=== PATIENT | male | born 1975 | race Caucasian/White ===

== ENCOUNTER 2020-06-23 18:34 | Emergency (ER) | payer OTHER ==
[~2020-06-23] VITALS: Ht 172.7 cm; Wt 97.5 kg
--- NOTE | 2020-06-23 20:00 | NUR ---
Patient ambulated with stable gait. A/Ox4. Speech is clear, speaks in complete sentences. Patient came for throat discomfort, feels like it is swelling. Patient airway is nonobstructing, is not in respiratory distress, no sob no cough, no stridor. Patient in bed at lowest position, sr upx2, call light within reach. Safety precuations implemented per protocol.
[2020-06-23] MEDS ORDERED: predniSONE 20 MG TABLET PO ONE (20:30)
[2020-06-23] MEDS ORDERED: diphenhydrAMINE 50 MG CAPSULE PO ONE (20:30)
[2020-06-23] MEDS ORDERED: FAMOTIDINE 20 MG TABLET PO ONE (20:30)
[2020-06-23] MEDS ORDERED: predniSONE 50 MG TABLET ONE (20:35)
[2020-06-23] MEDS ORDERED: predniSONE 10 MG TABLET ONE (20:35)
[2020-06-23] MEDS ORDERED: diphenhydrAMINE 50 MG CAPSULE ONE (20:35)
[2020-06-23] MEDS ORDERED: FAMOTIDINE 20 MG TABLET ONE (20:36)
--- NOTE | 2020-06-23 21:17 | NUR ---
Patient discharged to home in stable condition. Written and verbal after care instructions given. Patient verbalizes understanding of instructions. Stressed follow up or return to ER for worsening s/s. Patient ambulated with stable gait.
[2020-06-23 21:27] VITALS: BP 128/58
== END 2020-06-23 21:27 | disposition home or self-care (01) ==
LOC: ER 18:36
DX: T78.40XA Allergy, unspecified, initial encounter (principal); X58.XXXA Exposure to other specified factors, initial encounter; R60.0 Localized edema; K21.9 Gastro-esophageal reflux disease without esophagitis
CPT/HCPCS: 99284; J7512 ×2; Q0163; A4663

== ENCOUNTER 2025-04-14 01:17 | Emergency (ER) | payer OTHER ==
[~2025-04-14] VITALS: Ht 172.7 cm; Wt 99.8 kg
[2025-04-14] MEDS ORDERED: IBUPROFEN 600 MG TABLET ONE (01:58)
[2025-04-14] MEDS: IBUPROFEN 600 MG TABLET PO ONE (01:58)
[2025-04-14 03:14] LABS: BASOPHILS # (AUTO) 0.1 K/UL (0.0-0.2); BASOPHILS % (AUTO) 0.8 % (0.0-2.0); EOSINOPHILS # (AUTO) 0.1 K/uL (0.0-0.7); EOSINOPHILS % (AUTO) 1.4 % (0.0-7.0); HEMATOCRIT 40.1 % (36.7-47.1); HEMOGLOBIN 13.8 g/dL (12.5-16.3); LYMPHOCYTES # (AUTO) 2.2 K/uL (0.8-4.8); LYMPHOCYTES % (AUTO) 23.1 % (20.5-51.5); MEAN CORPUSCULAR HEMOGLOBIN 29.1 uug (23.8-33.4); MEAN CORPUSCULAR HGB CONC 34 g/dL (32.5-36.3); MEAN CORPUSCULAR VOLUME 84.5 fL (73.0-96.2); MONOCYTES # (AUTO) 0.6 K/uL (0.1-1.30); MONOCYTES % (AUTO) 6.6 % (0.0-11.0); NEUTROPHILS # (AUTO) 6.5 K/uL (1.8-8.9); NEUTROPHILS % (AUTO) 68.1 % (38.5-71.5); PLATELET COUNT (AUTO) 196 K/uL (152-348); RED BLOOD CELL COUNT(AUTO) 4.74 MIL/uL (4.06-5.63); RED CELL DISTRIBUTION WIDTH 13.5 % (12.1-16.2); WHITE BLOOD COUNT (AUTO) 9.6 K/uL (3.6-10.2)
[2025-04-14 03:18] LABS: DIFFERENTIAL COMMENT 1
[2025-04-14] MEDS ORDERED: IBUP-1490 PO (03:36)
[2025-04-14 04:07] VITALS: BP 131/95; TEMP 98; O2SAT 98
== END 2025-04-14 04:08 | disposition home or self-care (01) ==
LOC: ER 01:27
DX: M25.421 Effusion, right elbow (principal); M71.521 Other bursitis, not elsewhere classified, right elbow; M25.521 Pain in right elbow; F17.210 Nicotine dependence, cigarettes, uncomplicated; K21.9 Gastro-esophageal reflux disease without esophagitis
CPT/HCPCS: 36415; 73080; 73090; 85025; 87040; A4606; A4663